=== PATIENT | male | born 1940 | race Caucasian/White ===

== ENCOUNTER 2018-11-20 08:14 | Inpatient (IN) ==
[2018-11-20] MEDS ORDERED: Naloxone 0.4 MG/ML INJ IVP PRN (11:25)
[2018-11-20] MEDS ORDERED: Artificial Tears SOLN 15 ML BOTTLE BOTH EYES PRN (11:27)
[2018-11-20 11:51] LABS: ABG Base Excess -1 mEq/L (-2 to 3); ABG HCO3 24 mEq/L (21-27); ABG Oxygen Saturation 94 % (95-98); ABG PCO2 40 mmHg (35-45); ABG PH 7.39 pH Units (7.32-7.45); ABG PO2 72 mmHg (85-104); ABG TCO2 25 mEq/L (20-26); Blood Gas VT 450 cc
[2018-11-20] MEDS: Pantoprazole 40 MG VIAL IVP SCH (12:21)
[2018-11-20] MEDS: Chlorhexidine Rinse 15 ML MOUTHWASH MM SCH ×2 (12:21→20:16)
[2018-11-20] MEDS: Artificial Tears SOLN 15 ML BOTTLE BOTH EYES SCH ×4 (12:21→23:26)
[2018-11-20] MEDS ORDERED: Calcium Gluconate 1gm/50mL 1 GM/50 ML BAG IVPB PRN (13:42)
[2018-11-20] MEDS ORDERED: Potassium Phosphate 44 MEQ in 0.9 % Sodium Chloride 250 ML IVPB PRN (13:42)
[2018-11-20] MEDS ORDERED: Potassium Chloride 40 MEQ/200 ML BAG IVPB PRN (13:42)
[2018-11-20] MEDS ORDERED: Vancomycin 1 EACH in 0.9 % Sodium Chloride 250 ML IVPB SCH (15:00)
[2018-11-20 15:40] LABS: Basophils # 0.1 K/mcL (0.0-0.2); Basophils % 0.4 %; Hematocrit 36.5 % (37.5-50.1); Immature Granulocytes % 0.6 % (0-4); Lymphocytes # 0.5 K/mcL (0.6-4.6); Lymphocytes % 3.2 %; Mean Corpuscular HGB Conc 30.1 g/dL (31.6-35.5); Mean Corpuscular Hemoglobin 30.9 pg (28.0-33.3); Mean Corpuscular Volume 102.5 fL (83.0-100.0); Monocytes % 6.9 %; Neutrophils # 13.2 K/mcL (1.6-8.9); Platelet Count 281 K/mcL (140-400); Red Blood Count 3.56 M/mcL (4.19-5.50); Red Cell Distribution Width 19.1 % (11.5-14.5); Segmented Neutrophils % 88.9 %; White Blood Count 14.9 K/mcL (4.3-11.1)
[2018-11-20] MEDS: Piperacillin/Tazobactam 3.375 GM in 0.9 % Sodium Chloride Mini Bag 100 ML IVPB SCH (17:16)
[2018-11-20] MEDS: *HR* Heparin 5,000 UNIT/ML VIAL SQ SCH (17:17)
[2018-11-20 17:44] LABS: Albumin 3.2 g/dL (3.5-5.7); Bilirubin,Direct 0.1 mg/dL (0.0-0.2); Bilirubin,Indirect 0.2 mg/dL (0.0-1.2); Bilirubin,Total 0.3 mg/dL (0.3-1.0); Calcium 10.1 mg/dL (8.6-10.3); Globulin 3.2 g/dL (2.4-3.5); Magnesium 2.5 mg/dL (1.6-2.6); Potassium 4.7 mEq/L (3.5-5.1); Total Protein 6.4 g/dL (6.4-8.9)
[2018-11-20] MEDS: Ipratropium/Albuterol Neb 3 ML IH SCH ×2 (19:45→23:25)
[2018-11-20] MEDS: Budesonide/Formoterol 160/4.5 1 PUFF INH IH SCH (19:45)
[2018-11-21] MEDS: Piperacillin/Tazobactam 3.375 GM in 0.9 % Sodium Chloride Mini Bag 100 ML IVPB SCH ×2 (03:03→18:06)
[2018-11-21] MEDS: Artificial Tears SOLN 15 ML BOTTLE BOTH EYES SCH ×6 (03:04→23:11)
[2018-11-21] MEDS: Ipratropium/Albuterol Neb 3 ML IH SCH ×6 (03:25→23:47)
[2018-11-21 03:27] LABS: Basophils # 0.1 K/mcL (0.0-0.2); Basophils % 0.6 %; Eosinophils % 0.1 %; Hematocrit 31.5 % (37.5-50.1); Hemoglobin 9.6 g/dL (12.9-16.9); Immature Granulocytes % 0.5 % (0-4); Immature Platelets 1.6 % (1.1-6.1); Lymphocytes # 0.8 K/mcL (0.6-4.6); Lymphocytes % 6.2 %; Mean Corpuscular HGB Conc 30.5 g/dL (31.6-35.5); Mean Corpuscular Hemoglobin 31.6 pg (28.0-33.3); Mean Corpuscular Volume 103.6 fL (83.0-100.0); Mean Platelet Volume 9.6 fL (9.4-12.4); Monocytes # 1.2 K/mcL (0.0-1.3); Monocytes % 9.3 %; Neutrophils # 11.1 K/mcL (1.6-8.9); Platelet Count 273 K/mcL (140-400); Red Blood Count 3.04 M/mcL (4.19-5.50); Red Cell Distribution Width 19.2 % (11.5-14.5); Segmented Neutrophils % 83.3 %; White Blood Count 13.3 K/mcL (4.3-11.1)
[2018-11-21 03:49] LABS: Magnesium 2.5 mg/dL (1.6-2.6); Potassium 4.2 mEq/L (3.5-5.1)
[2018-11-21 04:06] LABS: Thyroid Stimulating Hormone 2.579 mcIU/mL (0.340-5.600)
[2018-11-21 04:09] LABS: Triiodothyronine (T3) Free 2.12 pg/mL (2.50-3.90)
[2018-11-21 04:36] LABS: ABG Base Excess -2 mEq/L (-2 to 3); ABG HCO3 21 mEq/L (21-27); ABG Oxygen Saturation 98 % (95-98); ABG PCO2 25 mmHg (35-45); ABG PH 7.52 pH Units (7.32-7.45); ABG PO2 86 mmHg (85-104); ABG TCO2 21 mEq/L (20-26); Blood Gas Modality AF; Blood Gas VT 450 cc
[2018-11-21] MEDS: *HR* Heparin 5,000 UNIT/ML VIAL SQ SCH ×2 (05:34→18:09)
[2018-11-21] MEDS: Budesonide/Formoterol 160/4.5 1 PUFF INH IH SCH ×2 (07:28→19:45)
[2018-11-21] MEDS: Chlorhexidine Rinse 15 ML MOUTHWASH MM SCH ×2 (07:38→20:45)
[2018-11-21] MEDS: Pantoprazole 40 MG VIAL IVP SCH (07:39)
[2018-11-21] MEDS ORDERED: *HR* Labetalol 20 MG/4 ML SYRINGE IVP ONE (08:07)
[2018-11-21] MEDS ORDERED: 0.9 % Sodium Chloride 250 ML IVC PRN (08:53)
[2018-11-21] MEDS ORDERED: *HR* Heparin 10,000 UNIT/10 ML VIAL IV PRN (08:53)
[2018-11-21] MEDS ORDERED: 0.9 % Sodium Chloride 1,000 ML PRIME SCH (09:00)
[2018-11-21] MEDS ORDERED: hydrALAZINE 10 MG TABLET PO PRN (11:17)
[2018-11-21 12:36] LABS: Hepatitis B Surface Antibody 5.76 mIU/mL
[2018-11-21 12:47] LABS: Hepatitis B Surface Antigen Nonreactive (Nonreactive)
[2018-11-21] MEDS: Aspirin 81 MG TAB.CHEW GTUBE SCH (16:19)
[2018-11-21] MEDS ORDERED: *HR* FentaNYL (PF) 100 MCG/2 ML VIAL IVP ONE (16:47)
[2018-11-21] MEDS: FentaNYL (PF) 1,000 MCG in 0.9 % Sodium Chloride 80 ML IVC SCH (20:45)
[2018-11-22] MEDS: Ipratropium/Albuterol Neb 3 ML IH SCH ×6 (03:44→23:42)
[2018-11-22] MEDS: Artificial Tears SOLN 15 ML BOTTLE BOTH EYES SCH ×6 (04:06→23:32)
[2018-11-22 04:20] LABS: Basophils # 0.1 K/mcL (0.0-0.2); Basophils % 0.5 %; Eosinophils % 0.1 %; Hematocrit 31.7 % (37.5-50.1); Hemoglobin 9.4 g/dL (12.9-16.9); Immature Granulocytes % 0.6 % (0-4); Lymphocytes # 0.7 K/mcL (0.6-4.6); Lymphocytes % 5.1 %; Mean Corpuscular HGB Conc 29.7 g/dL (31.6-35.5); Mean Corpuscular Hemoglobin 31.2 pg (28.0-33.3); Mean Corpuscular Volume 105.3 fL (83.0-100.0); Mean Platelet Volume 9.3 fL (9.4-12.4); Monocytes # 1.4 K/mcL (0.0-1.3); Monocytes % 9.3 %; Neutrophils # 12.3 K/mcL (1.6-8.9); Platelet Count 248 K/mcL (140-400); Red Blood Count 3.01 M/mcL (4.19-5.50); Red Cell Distribution Width 19.6 % (11.5-14.5); Segmented Neutrophils % 84.4 %; White Blood Count 14.6 K/mcL (4.3-11.1)
[2018-11-22 04:24] LABS: VBG Ionized Calcium 1.25 mmol/L (1.15-1.35)
[2018-11-22 04:36] LABS: Calcium 9.5 mg/dL (8.6-10.3); Magnesium 2.3 mg/dL (1.6-2.6); Potassium 3.7 mEq/L (3.5-5.1)
[2018-11-22] MEDS: Piperacillin/Tazobactam 3.375 GM in 0.9 % Sodium Chloride Mini Bag 100 ML IVPB SCH ×2 (05:05→19:31)
[2018-11-22] MEDS: *HR* Heparin 5,000 UNIT/ML VIAL SQ SCH ×2 (05:05→19:30)
[2018-11-22] MEDS: Budesonide/Formoterol 160/4.5 1 PUFF INH IH SCH ×2 (07:24→19:52)
[2018-11-22 07:52] LABS: ABG Base Excess 5 mEq/L (-2 to 3); ABG HCO3 31 mEq/L (21-27); ABG Oxygen Saturation 97 % (95-98); ABG PCO2 57 mmHg (35-45); ABG PH 7.35 pH Units (7.32-7.45); ABG PO2 99 mmHg (85-104); ABG TCO2 33 mEq/L (20-26); Blood Gas Modality AF; Blood Gas VT 350 cc
[2018-11-22] MEDS ORDERED: Aminoglycoside Consult 1 EACH MC ONE (08:05)
[2018-11-22] MEDS: Chlorhexidine Rinse 15 ML MOUTHWASH MM SCH ×2 (08:06→19:31)
[2018-11-22] MEDS: Pantoprazole 40 MG VIAL IVP SCH (08:06)
[2018-11-22] MEDS: Aspirin 81 MG TAB.CHEW GTUBE SCH (08:06)
[2018-11-22] MEDS: FentaNYL (PF) 1,000 MCG in 0.9 % Sodium Chloride 80 ML IVC SCH (16:23)
[2018-11-23] MEDS: Ipratropium/Albuterol Neb 3 ML IH SCH ×6 (03:32→23:24)
[2018-11-23 03:36] LABS: Hematocrit 29.5 % (37.5-50.1); Hemoglobin 8.7 g/dL (12.9-16.9); Mean Corpuscular HGB Conc 29.5 g/dL (31.6-35.5); Mean Corpuscular Hemoglobin 30.9 pg (28.0-33.3); Mean Corpuscular Volume 104.6 fL (83.0-100.0); Mean Platelet Volume 9.6 fL (9.4-12.4); Platelet Count 249 K/mcL (140-400); Red Blood Count 2.82 M/mcL (4.19-5.50); Red Cell Distribution Width 19.1 % (11.5-14.5); White Blood Count 12.4 K/mcL (4.3-11.1)
[2018-11-23 03:40] LABS: VBG Ionized Calcium 1.29 mmol/L (1.15-1.35)
[2018-11-23 03:53] LABS: Calcium 9.6 mg/dL (8.6-10.3); Magnesium 2.5 mg/dL (1.6-2.6); Phosphorous 5.7 mg/dL (2.7-4.5); Potassium 3.8 mEq/L (3.5-5.1)
[2018-11-23] MEDS: Piperacillin/Tazobactam 3.375 GM in 0.9 % Sodium Chloride Mini Bag 100 ML IVPB SCH ×2 (04:50→18:37)
[2018-11-23] MEDS: *HR* Heparin 5,000 UNIT/ML VIAL SQ SCH ×2 (04:51→18:37)
[2018-11-23] MEDS: Artificial Tears SOLN 15 ML BOTTLE BOTH EYES SCH ×5 (04:51→22:18)
[2018-11-23] MEDS: Budesonide/Formoterol 160/4.5 1 PUFF INH IH SCH ×2 (07:40→20:36)
[2018-11-23] MEDS: Aspirin 81 MG TAB.CHEW GTUBE SCH (07:58)
[2018-11-23] MEDS: Pantoprazole 40 MG VIAL IVP SCH (07:58)
[2018-11-23] MEDS: Chlorhexidine Rinse 15 ML MOUTHWASH MM SCH ×2 (07:58→22:30)
[2018-11-23] MEDS ORDERED: Perflutren Lipid Microsphere 1.3 ML in 0.9 % Sodium Chloride 8.7 ML IVP ONE (12:57)
[2018-11-24] MEDS: Ipratropium/Albuterol Neb 3 ML IH SCH ×5 (03:12→20:13)
[2018-11-24] MEDS: Artificial Tears SOLN 15 ML BOTTLE BOTH EYES SCH ×6 (03:54→22:21)
[2018-11-24 04:41] LABS: Mean Platelet Volume 9.6 fL (9.4-12.4)
[2018-11-24 04:43] LABS: Basophils # 0.1 K/mcL (0.0-0.2); Basophils % 0.5 %; Eosinophils # 0.2 K/mcL (0.0-0.6); Eosinophils % 2.1 %; Hemoglobin 8.9 g/dL (12.9-16.9); Immature Granulocytes % 0.8 % (0-4); Lymphocytes # 0.9 K/mcL (0.6-4.6); Lymphocytes % 7.7 %; Mean Corpuscular HGB Conc 29.7 g/dL (31.6-35.5); Mean Corpuscular Hemoglobin 30.8 pg (28.0-33.3); Mean Corpuscular Volume 103.8 fL (83.0-100.0); Monocytes % 8.5 %; Neutrophils # 9.3 K/mcL (1.6-8.9); Platelet Count 255 K/mcL (140-400); Red Blood Count 2.89 M/mcL (4.19-5.50); Red Cell Distribution Width 19.1 % (11.5-14.5); Segmented Neutrophils % 80.4 %; White Blood Count 11.6 K/mcL (4.3-11.1)
[2018-11-24 04:53] LABS: Calcium 9.5 mg/dL (8.6-10.3); Potassium 4.4 mEq/L (3.5-5.1)
[2018-11-24 04:54] LABS: % Iron Saturation 27 % (20-55); Iron 42 mcg/dL (65-175); Transferrin 111 mg/dL (203-362)
[2018-11-24 05:06] LABS: Anisocytosis 2+ (Not Present); Hypochromasia Present (Not Present); Microcytosis Present (Not Present); Platelet Estimate Normal (Normal); Polychromasia 1+ (Not Present)
[2018-11-24 05:23] LABS: Folate > 22.3 ng/mL (3.0-16.0); Vitamin B12 1138 pg/mL (250-1100)
[2018-11-24] MEDS: Piperacillin/Tazobactam 3.375 GM in 0.9 % Sodium Chloride Mini Bag 100 ML IVPB SCH (06:18)
[2018-11-24] MEDS: *HR* Heparin 5,000 UNIT/ML VIAL SQ SCH (06:19)
[2018-11-24] MEDS: Budesonide/Formoterol 160/4.5 1 PUFF INH IH SCH ×2 (07:25→20:13)
[2018-11-24] MEDS: Pantoprazole 40 MG VIAL IVP SCH (08:28)
[2018-11-24] MEDS: Chlorhexidine Rinse 15 ML MOUTHWASH MM SCH (08:28)
[2018-11-24] MEDS: Aspirin 81 MG TAB.CHEW GTUBE SCH (08:28)
[2018-11-24] MEDS ORDERED: *HR* OxyCODONE Oral Soln 5 MG/5 ML UD.LIQ PO PRN (14:12)
[2018-11-24] MEDS ORDERED: Scopolamine Patch 1.5 MG PATCH.TD72 TD SCH (14:15)
[2018-11-24] MEDS ORDERED: Atropine Sulfate 1% 40 DROP/2 ML BOTTLE SL PRN (14:16)
[2018-11-24] MEDS ORDERED: Artificial Tears SOLN 15 ML BOTTLE BOTH EYES PRN (16:53)
[2018-11-24] MEDS: *HR* OxyCODONE Oral Soln 5 MG/5 ML UD.LIQ PO PRN ×2 (18:53→22:20)
[2018-11-24] MEDS: levETIRAcetam 500 MG/5 ML UDC GTUBE SCH (22:21)
[2018-11-25] MEDS: Ipratropium/Albuterol Neb 3 ML IH SCH ×6 (00:04→20:12)
[2018-11-25] MEDS: Artificial Tears SOLN 15 ML BOTTLE BOTH EYES SCH ×4 (05:02→20:01)
[2018-11-25] MEDS: Budesonide/Formoterol 160/4.5 1 PUFF INH IH SCH ×2 (07:36→20:12)
[2018-11-25] MEDS: levETIRAcetam 500 MG/5 ML UDC GTUBE SCH ×2 (08:15→20:00)
[2018-11-25] MEDS: Atropine Sulfate 1% 40 DROP/2 ML BOTTLE SL PRN ×2 (08:18→20:01)
[2018-11-25] MEDS: *HR* OxyCODONE Oral Soln 5 MG/5 ML UD.LIQ PO PRN ×2 (10:55→20:00)
[2018-11-26] MEDS: Ipratropium/Albuterol Neb 3 ML IH SCH ×3 (00:26→07:32)
[2018-11-26] MEDS: Artificial Tears SOLN 15 ML BOTTLE BOTH EYES SCH ×6 (00:31→19:38)
[2018-11-26] MEDS: Budesonide/Formoterol 160/4.5 1 PUFF INH IH SCH (07:32)
[2018-11-26] MEDS: levETIRAcetam 500 MG/5 ML UDC GTUBE SCH ×2 (09:28→20:51)
[2018-11-26] MEDS: *HR* OxyCODONE Oral Soln 5 MG/5 ML UD.LIQ PO PRN ×9 (09:29→23:31)
[2018-11-26] MEDS: Atropine Sulfate 1% 40 DROP/2 ML BOTTLE SL PRN ×4 (09:31→19:38)
[2018-11-26] MEDS: Morphine Sulfate Oral CONC 10 MG/0.5 ML ORAL.SYG SL PRN ×4 (14:55→21:33)
[2018-11-26 20:09] VITALS: BP 115/68
[2018-11-27] MEDS: Atropine Sulfate 1% 40 DROP/2 ML BOTTLE SL PRN (00:30)
[2018-11-27] MEDS: Artificial Tears SOLN 15 ML BOTTLE BOTH EYES SCH (00:30)
[2018-11-27] MEDS: Morphine Sulfate Oral CONC 10 MG/0.5 ML ORAL.SYG SL PRN (00:31)
[2018-11-27] MEDS: *HR* OxyCODONE Oral Soln 5 MG/5 ML UD.LIQ PO PRN ×2 (01:31→02:32)
[2018-11-27] MEDS ORDERED: Scopolamine Patch 1.5 MG PATCH.TD72 TD SCH (14:15)
== END 2018-11-27 05:47 | disposition expired | DRG 207 ==
LOC: ICNU 11:19 → 2NNU 11-24 16:42
PROVIDERS: ADMIT Internal Medicine Pulmonary Disease; ATTEND Internal Medicine